=== PATIENT | male | born 1965 | race Two or more races ===

== ENCOUNTER 2025-02-02 18:54 | Emergency (ER) | payer BC, SELFPAY ==
[2025-02-02 19:36] VITALS: BP 123/73; PULSE 104; RESP 17; TEMP 36.8; O2SAT 96
--- NOTE | 2025-02-02 20:01 | XR_ITS ---
Examination: CT brain head without contrast. 2-D sagittal coronal reconstructions Date and time of exam: February 02, 2025, 2018 hours INDICATIONS: Patient fell today, hit the back of the head, head pain CTDI: vol (mGy): 51.1 DLP: (mGycm): 975 Technique: Multiple CT axial sections of the brain have been obtained, 5 mm slice thickness. Contrast has not been administered. 2-D sagittal, coronal reconstructions have been obtained Low dose protocols were performed. One or more of the following dose reduction techniques were used; automated exposure control, adjustment of the mA and/or KV according to patient size, use of iterative reconstruction technique. Findings: No significant ventricular enlargement. Left parietal scalp hematoma Intra-axial or extra-axial hemorrhage density is not seen. No mass effect or midline shift Basal cisterns are not remarkable. Fourth ventricle is midline. Cranial vault intact. Impression: Negative for acute hemorrhage, mass effect or midline shift
[2025-02-02] MEDS: HYDROcodone/APAP 5/325 TABLET 1 TAB PO (21:46)
[2025-02-02] MEDS: BACITRACIN OINT 1 GM PACKET TOP (21:46)
--- NOTE | 2025-04-19 10:25 | EDNOTE_ITS ---
ED Head Injury RME/HPI General Chief complaint: Head Injury Stated complaint: HIT HEAD AT WORK YESTERDAY, NAUCEOUS, DIZZY Time Seen by Provider: 02/02/25 18:58 Arrival date/time: 02/02/25 18:54 This is a case of 60-year-old male with no medical history came in in the emergency room due to head injury history of present illness started yesterday when the patient while working hit his head on a metal part and sustained a contusion and abrasion on the scalp today patient is complaining of headache nausea and dizziness no blurring of vision no loss of consciousness Limitations: no limitations Related Data Previous Rx's ?Medication ?Instructions ?Recorded mupirocin 2 % topical ointment 1 applic topical BID #2 2 grams 02/02/25 (Centany) Allergies Allergy/AdvReac Type Severity Reaction Status Date / Time No Known Allergies Allergy Verified 02/02/25 18:57 Review of Systems Review of Systems Systems Reviewed: All systems reviewed, normal except as documented Past Medical History Past Medical History CARDIAC: Negative Congestive Heart Failure RESPIRATORY: Negative Chronic Obstructive Pulmonary Disease (COPD) GENITOURINARY: Negative Renal Disease ENDOCRINE: Negative Diabetes Mellitus Type 1 or Diabetes Mellitus Type 2 Social History SMOKING STATUS: Current every day smoker SUBSTANCE USE: does not use ED Exam General Limitations: Present no limitations General appearance: Present alert, in no apparent distress and other (Patient is awake alert oriented not in distress nontoxic looking well-hydrated well-nourished) Head Head exam: Present atraumatic, normocephalic, normal inspection and other (Patient sustain contusion and abrasion on the scalp occipital area but no crepitation no deformity no redness no abscess no cellulitis) Eye Eye exam: Present normal appearance, PERRL, EOMI and other (PERRL EOM intact normal conjunctiva no papilledema) ENT ENT exam: Present normal exam, normal oropharynx and mucous membranes moist Neck Neck exam: Present normal inspection, full ROM and trachea midline Chest Chest inspection: Present normal inspection and symmetric chest wall rise Respiratory Respiratory exam: Present normal lung sounds bilaterally Cardiovascular Cardiovascular exam: Present regular rate, normal rhythm and normal heart sounds Abdominal Exam Abdominal exam: Present soft and normal bowel sounds Extremities Exam Extremities exam: Present normal inspection and full ROM Back Exam Back exam: Present normal inspection and full ROM Neurological Exam Neurological exam: Present alert, oriented X3, CN II-XII intact, normal gait, reflexes normal and other (Awake alert oriented x 4 no focal deficit GCS 15/15 steady gait memory intact no slurring speech no facial droop motor or sensory reflex were all normal in all extremities negative Babinski); Absent motor s ensory deficit Psychiatric Psychiatric exam: Present normal affect and normal mood Skin Skin exam: Present warm, dry, intact and normal color Course Quality Measures none Orders Category Date Time Status CT head/brain wo con Stat Exams 02/02/25 20:01 Completed Bacitracin Oint pkt Med 02/02/25 21:11 Discontinued 1 gm TOP X1 ONE HYDROcodone*/APAP 5/325 [[place] 5/325] Med 02/02/25 21:11 Discontinued 1 tab PO X1 ONE TET,DIP/PERT AC (Adult)-Tdap [Boostrix Adult (Tdap) Med 02/02/25 21:11 Discontinued Vacc] 0.5 ml IMI .ONCE ONE cefTRIAXone [Rocephin] 1,000 mg Med 02/02/25 21:11 Discontinued Lidocaine 1% Pf Vial 5ml [Xylocaine 1% Pf 5 ml] 2.1 ml IM X1 Vital Signs Vital signs: Vital Signs Temperature 98.3 F 02/02/25 19:36 Pulse Rate 104 H 02/02/25 19:36 Respiratory Rate 17 02/02/25 19:36 Blood Pressure 123/73 02/02/25 19:36 Pulse Oximetry (%) 96 02/02/25 19:36 Oxygen Delivery Method Room Air 02/02/25 19:36 Stable vital signs Head Injury MDM Narrative MDM Narrative:: Patient was discharged with comfortable condition walking with stable gait. Patient verbalized no further complains explained diagnosis and answered patient question. Patient is comfortable with the proposed management plan including the need to follow up with his/her primary care physician and any specialist if applicable Discussed patient for any urgent condition or worsening sx, He/She needed to go to emergency room immediately or call 911. Patient acknowledge the responsibility to follow up as instructed and to monitor her/his symptoms. For any persistence of the symptoms for more than 3-5 days return precaution advised. Discussed the result of the test and was given printed discharge instruction Patient data External records reviewed:: [facility] previous records Clinical information provided by:: patient Social determinants that could affect healthcare access:: none Patient has the following chronic illnesses:: None How is presenting disease/condition affected by chronic disease/condition?: no chronic disease Evaluation data The following diagnostics were reviewed and interpreted by me:: radiology exam(s) Lab and/or radiology exams considered but not ordered:: Reviewed Interpretation Summary: Reviewed Medications / Prescriptions Medications or Prescriptions considered but not ordered:: Given Medication administrations:: Medication Administration History Discontinued Medications Hydrocodone Bitart/Acetaminophen (Hydrocodone/Apap 5/325 Tablet) 1 tab PO X1 ONE Stop: 02/02/25 21:12 Last Admin: 02/02/25 21:46 Dose: 1 tab Documented By: JENNIFER Bacitracin (Bacitracin Oint 1 Gm Packet) 1 gm TOP X1 ONE Stop: 02/02/25 21:12 Last Admin: 02/02/25 21:46 Dose: 1 gm Documented By: JENNIFER Ceftriaxone Sodium 1,000 mg/ (Lidocaine HCl 2.1 ml) 0 mg IM X1 ONE Stop: 02/02/25 21:12 Last Admin: 02/02/25 21:47 Dose: 1,000 mg Documented By: JENNIFER Diphtheria/Tetanus/Acell Pertussis (Diphth,Pertuss(Acell),Tet Vac 0.5 Ml Syr- Adult) 0.5 ml IMi .ONCE ONE Stop: 02/02/25 21:12 Last Admin: 02/02/25 21:47 Dose: Not Given Documented By: JENNIFER Non-Admin Reason: Patient Refused Comments: received vaccine in 2020 Given Consultations Consultation(s) initiated? (list below): No Diagnosis Differential diagnosis head injury: closed head injury Most likely diagnosis given after review of the tests above:: Head injury scalp contusion abrasion Admission Indicated Admission indicated?: not indicated Explain why admission is indicated or not indicated:: Not indicated Admission Request Was there a request for admission?: No Admission Attestation Admission request attestation: Not indicated Disposition Plan Disposition Plan: Discharge Discharge Attestation Discharge Attestation: The patient and all family members were given an opportunity to ask questions and understood the discharge instructions. Discharge instructions specifically effects, indications for sooner follow up or return to the emergency department, and the expected course of current diagnosis. Patient condition: Stable Discharge Plan Plan Patient Disposition: HOME (Self Care) Patient condition on transfer: Stable Prescriptions/Referrals Prescriptions/Med Rec: New mupirocin [Centany] 2 % ointment 1 applic topical BID Qty: 22 0RF Referrals: Benjamín Avendano MD [Primary Care Provider, Family Practice] - In 1 week Problem List Clinical Impression: Head injury, Scalp hematoma, Abrasion of scalp Patient/Caregiver Discharge Instructions Education Materials: ED Abrasions, ED Scalp Contusion, ED Head Injury (Adult) Additional Instructions: Follow-up with your primary care physician in 2 days for reevaluation worsening symptoms or any emergent concerns such as headache nausea vomiting dizziness blurring of vision numbness weakness tingling sensation memory loss unsteady gait signs or symptoms of infection redness swelling discharge from the wound pain fever chills return to the emergency room immediately or call 911 finish the course of antibiotic keep the abrasion clean and dry ice pack to the scalp hematoma is advised Print Language: Chinese Stand Alone Forms: [place] Award Info., Patient Portal Info Letter PA/PHILOSOPHY LECTURER Supervising Physician PA/PHILOSOPHY LECTURER Supervising Physician: Dr. Newton
== END 2025-02-02 22:02 | disposition home or self-care (01) ==
PROVIDERS: Emergency Provider Emergency Medicine; PCP Family Medicine
DX: S00.03XA Contusion of scalp, initial encounter (principal); S00.01XA Abrasion of scalp, initial encounter; W22.8XXA Striking against or struck by other objects, initial encounter; Y99.0 Civilian activity done for income or pay
CPT/HCPCS: 70450; 96372; 99283; J0696; J3490; A9270